=== PATIENT | male | born 1975 | race Caucasian/White ===

== ENCOUNTER 2024-09-22 23:03 | Emergency (ER) | payer MEDICAID ==
[~2024-09-22] VITALS: Ht 172.7 cm; Wt 72.6 kg
[2024-09-22 23:03] VITALS: BP 150/70; PULSE 98; RESP 16; TEMP 97.2; O2SAT 98
[2024-09-22 23:24] VITALS: O2SAT 98
[2024-09-23] MEDS: BACITRACIN OINT 500 UNITS/GM PKT TP ONE (00:10)
[2024-09-23] MEDS ORDERED: IBUP-2218 PO (01:06)
[2024-09-23 01:20] VITALS: BP 150/70; PULSE 98; RESP 16; TEMP 97.2; O2SAT 98
== END 2024-09-23 01:56 | disposition home or self-care (01) ==
LOC: MED 23:03
DX: S82.001A Unspecified fracture of right patella, initial encounter for closed fracture (principal); Z79.899 Other long term (current) drug therapy; W22.8XXA Striking against or struck by other objects, initial encounter; Y92.89 Other specified places as the place of occurrence of the external cause; Y93.89 Activity, other specified; Y99.8 Other external cause status
CPT/HCPCS: 29505; 73562; 90471; 90715; 99283; Q0092